=== PATIENT | female | born 1995 | race American Indian/Alaskan Native ===

== ENCOUNTER 2020-11-03 11:47 | Emergency (ER) | payer BC ==
[2020-11-03 12:25] VITALS: BP 125/79
--- NOTE | 2020-11-03 12:41 | Emergency Department Report ---
ED Fall HPI - General Chief Complaint: Fall Stated Complaint: HEAD INJUR/RT ANKLE INJURY Time Seen by Provider: 11/03/20 12:23 Source: patient Mode of arrival: Ambulatory - History of Present Illness Initial Comments: Patient is a 25-year-old female presents emergency room complaints of a fall that occurred earlier today. She states that she fell down the steps. She states that it was an accident and she accidentally tripped and fell down the steps inside the house. She is complaining of right ankle pain and mild left shoulder pain. She states that she hit her head and has a mild headache but believes she also has a headache secondary to not eating yet today. She denies ever injuring anything in the past. She denies any loss of consciousness, vision changes, vomiting, numbness, weakness, bowel or bladder incontinence, any other symptoms. No past medical history. No allergies medications. She states that she has irregular cycles and denies any possibility of . - Related Data Previous Rx's Medication Instructions Recorded Last Taken Type Naproxen [EC-Naprosyn] 500 mg PO BID PRN #14 tablet. 11/03/20 Unknown Rx Allergies Allergy/AdvReac Type Severity Reaction Status Date / Time No Known Allergies Allergy Unverified 11/03/20 12:21 ED Review of Systems ROS: Stated complaint: HEAD INJUR/RT ANKLE INJURY Other details as noted in HPI Comment: All other systems reviewed and negative ED Past Medical Hx - Past Medical History Previous Medical History?: No - Surgical History Past Surgical History?: No - Medications Home Medications: Home Medications Medication Instructions Recorded Confirmed Last Taken Type Naproxen [EC-Naprosyn] 500 mg PO BID PRN #14 tablet. 11/03/20 Unknown Rx ED Physical Exam - General Limitations: No Limitations General appearance: alert, in no apparent distress - Head Head exam: Present: atraumatic, normocephalic - Eye Eye exam: Present: normal appearance, PERRL, EOMI. Absent: periorbital swelling, periorbital tenderness Pupils: Present: normal accommodation, other (no racoon eyes) - ENT ENT exam: Present: mucous membranes moist, other (no perez signs ) - Neck Neck exam: Present: normal inspection, full ROM. Absent: tenderness - Respiratory Respiratory exam: Present: normal lung sounds bilaterally. Absent: respiratory distress, wheezes, rales, rhonchi, stridor, chest wall tenderness, accessory muscle use, decreased breath sounds, prolonged expiratory - Cardiovascular Cardiovascular Exam: Present: regular rate, normal rhythm, normal heart sounds. Absent: systolic murmur, diastolic murmur, rubs, gallop - Extremities Exam Extremities exam: Present: normal capillary refill (neurovascularly intact throughout), other (mild right anterior shoulder ttp, FROM of the BUE, no deformity, no ecchymosis, no sulcus sign, clavicles are equal, no clavicular ttp, ttp and edema present to the left, medial anterior ankle, FROM of the right ankle with discomfort upon flexion, no ttp of the foot or toes, no deformity) - Back Exam Back exam: Present: normal inspection, full ROM. Absent: paraspinal tenderness, vertebral tenderness - Neurological Exam Neurological exam: Present: alert, oriented X3, CN II-XII intact, normal gait. Absent: motor sensory deficit - Psychiatric Psychiatric exam: Present: normal affect, normal mood - Skin Skin exam: Present: warm, dry ED Course Vital Signs 11/03/20 12:24 Temperature 99.8 F H Pulse Rate 75 Respiratory 20 Rate Blood Pressure 125/79 O2 Sat by Pulse 99 Oximetry ED Medical Decision Making - Radiology Data Radiology results: report reviewed Ordering Physician: LISA HARRY Date of Service: 11/03/20 Procedure(s): XR ankle 3+V RT Accession Number(s): [id number] cc: LISA HARRY Fluoro Time In Minutes: RIGHT ANKLE 3 VIEWS INDICATION: fall, right ankle pain. COMPARISON: None. IMPRESSION: No acute osseous or soft tissue abnormality. No significant DJD. Signer Name: Asad Gutierrez Jr, MD Signed: 11/03/2020 1:45 PM Workstation Name: [id number] Transcribed By: TTR Dictated By: ASAD GUTIERREZ JR, MD Electronically Authenticated By: ASAD GUTIERREZ JR, MD Signed Date/Time: 11/03/20 1345 DD/ 1345 TD/TT: Ordering Physician: LISA HARRY Date of Service: 11/03/20 Procedure(s): XR shoulder 2+V LT Accession Number(s): [id number] cc: LISA HARRY Fluoro Time In Minutes: LEFT SHOULDER 3 VIEWS INDICATION: fall, left shoulder pain. COMPARISON: None. IMPRESSION: No acute osseous or soft tissue abnormality. No significant DJD. Signer Name: Asad Gutierrez Jr, MD Signed: 11/03/2020 1:42 PM Workstation Name: [id number] Transcribed By: TTR Dictated By: ASAD GUTIERREZ JR, MD Electronically Authenticated By: ASAD GUTIERREZ JR, MD Signed Date/Time: 11/03/201341 DD/ 41 TD/TT: - Medical Decision Making Patient is a 25-year-old female presents emergency room complaints of a fall that occurred earlier today. She states that she fell down the steps. She states that it was an accident and she accidentally tripped and fell down the steps inside the house. She is complaining of right ankle pain and mild left shoulder pain. She states that she hit her head and has a mild headache but believes she also has a headache secondary to not eating yet today. She denies ever injuring anything in the past. She denies any loss of consciousness, vision changes, vomiting, numbness, weakness, bowel or bladder incontinence, any other symptoms. No past medical history. No allergies medications. She states that she has irregular cycles and denies any possibility of . on exam: mild right anterior shoulder ttp, FROM of the BUE, no deformity, no ecchymosis, no sulcus sign, clavicles are equal, no clavicular ttp, ttp and edema present to the left, medial anterior ankle, FROM of the right ankle with discomfort upon flexion, no ttp of the foot or toes, no deformity, neurovascularly intact. XR right ankle: IMPRESSION: No acute osseous or soft tissue abnormality. No significant DJD. XR left shoulder: IMPRESSION: No acute osseous or soft tissue abnormality. No significant DJD. Citizen Of [place] CT head rule is 0, CT head imaging is not recommended. Symptoms likely related to right ankle sprain. Patient placed in Micheal wrap by nurse and remained neurovascular intact. Discussed all results with patient. Patient given prescription for naproxen. Advised patient Please take medication as prescribed as needed. May use ice for 15 minutes at a time, rest, elevation of the leg. Do not wear Micheal bandage too tightly and do not wear at night while sleeping. Follow-up with orthopedic doctor if symptoms or not improving. Follow-up with primary care doctor. Return to emergency room for any new or worsening symptoms. Critical care attestation.: If time is entered above; I have spent that time in minutes in the direct care of this critically ill patient, excluding procedure time. ED Disposition Clinical Impression: Fall Qualifiers: Encounter type: initial encounter Qualified Code(s): W19.XXXA - Unspecified fall, initial encounter Right ankle pain Qualifiers: Chronicity: acute Qualified Code(s): M25.571 - Pain in right ankle and joints of right foot Left shoulder pain Qualifiers: Chronicity: acute Qualified Code(s): M25.512 - Pain in left shoulder Disposition: - TO HOME OR SELFCARE Is pt being admited?: No Does the pt Need Aspirin: No Condition: Stable Instructions: Shoulder Pain, Ankle Sprain Additional Instructions: Please take medication as prescribed as needed. May use ice for 15 minutes at a time, rest, elevation of the leg. Do not wear Micheal bandage too tightly and do not wear at night while sleeping. Follow-up with orthopedic doctor if symptoms or not improving. Follow-up with primary care doctor. Return to emergency room for any new or worsening symptoms. Your x-rays are normal and show no signs of fracture or dislocation Prescriptions: Naproxen [EC-Naprosyn] 500 mg PO BID PRN #14 tablet.dr VARGAS Reason: pain Referrals: PRIMARY MD JOEL [Primary Care Provider] - 2-3 Days [facility] [Provider Group] - 2-3 Days NOHEMY SAHNI MD [Staff Physician] - 2-3 Days Time of Disposition: 14:00 Print Language: SWEDISH
--- NOTE | 2020-11-03 13:47 | XRay Report ---
LEFT SHOULDER 3 VIEWS INDICATION: fall, left shoulder pain. COMPARISON: None. IMPRESSION: No acute osseous or soft tissue abnormality. No significant DJD. Signer Name: Asad Gutierrez Jr, MD Signed: 11/03/2020 1:42 PM Workstation Name: [id number]
--- NOTE | 2020-11-03 13:50 | XRay Report ---
RIGHT ANKLE 3 VIEWS INDICATION: fall, right ankle pain. COMPARISON: None. IMPRESSION: No acute osseous or soft tissue abnormality. No significant DJD. Signer Name: Asad Gutierrez Jr, MD Signed: 11/03/2020 1:45 PM Workstation Name: [id number]
== END 2020-11-03 14:49 | disposition home or self-care (01) ==
LOC: ED 11:47
DX: M25.571 Pain in right ankle and joints of right foot (principal); M25.512 Pain in left shoulder; Z79.899 Other long term (current) drug therapy; W10.9XXA Fall (on) (from) unspecified stairs and steps, initial encounter; Y93.89 Activity, other specified; Y92.89 Other specified places as the place of occurrence of the external cause; Y99.8 Other external cause status
CPT/HCPCS: 99283